=== PATIENT | female | born 1965 | race Caucasian/White ===

== ENCOUNTER 2016-12-14 11:12 | Emergency (ER) | payer OTHER ==
[~2016-12-14] VITALS: Ht 170.2 cm; Wt 83.9 kg
[~2016-12-14 11:12] MED LIST: DICL75TA5 PO; GABA300C PO; HYDR-548 PO; LEVO100T PO
[2016-12-14] MEDS ORDERED: PROMETHAZINE HCL 25 MG/1 ML VIAL ONE (11:43)
[2016-12-14] MEDS ORDERED: HYDROMORPHONE 2 MG/1 ML DISP.SYRIN ONE (11:43)
[2016-12-14] MEDS ORDERED: ONDANSETRON ODT 4 MG TAB.RAPDIS SL ONE (11:45)
[2016-12-14] MEDS ORDERED: HYDROMORPHONE 1 MG/1 ML DISP.SYRIN IM ONE (11:45)
[2016-12-14] MEDS ORDERED: PROMETHAZINE HCL 25 MG/1 ML VIAL IM ONE (11:45)
[2016-12-14] MEDS ORDERED: ONDANSETRON ODT 4 MG TAB.RAPDIS ONE (11:53)
[2016-12-14 12:13] VITALS: BP 136/77
--- NOTE | 2016-12-14 12:13 | NUR ---
pt was evaluated by dr navarro. pt was d/c to home. d/c instructions given to the pt.
== END 2016-12-14 12:14 | disposition home or self-care (01) ==
LOC: ER 11:13
DX: M54.40 Lumbago with sciatica, unspecified side (principal); F32.9 Major depressive disorder, single episode, unspecified; F41.9 Anxiety disorder, unspecified; F17.200 Nicotine dependence, unspecified, uncomplicated
CPT/HCPCS: 96372 ×2; 99284; A4663; J1170; J2550; Q0162

== ENCOUNTER 2017-01-15 16:22 | Emergency (ER) | payer OTHER ==
[~2017-01-15] VITALS: Ht 170.2 cm; Wt 86.2 kg
[2017-01-15] MEDS ORDERED: MORPHINE SULFATE 4 MG/1 ML DISP.SYRIN IM ONE ×2 (17:00→18:15)
[2017-01-15] MEDS ORDERED: MORPHINE SULFATE 2 MG/1 ML DISP.SYRIN ONE ×2 (17:11→18:12)
[2017-01-15] MEDS ORDERED: MORPHINE SULFATE 4 MG/1 ML DISP.SYRIN ONE ×2 (17:12→18:12)
[2017-01-15] MEDS ORDERED: ONDANSETRON ODT 4 MG TAB.RAPDIS SL ONE (17:30)
[2017-01-15] MEDS ORDERED: ONDANSETRON ODT 4 MG TAB.RAPDIS ONE (17:31)
--- NOTE | 2017-01-15 18:43 | NUR ---
Patient discharged to home in stable conditon. Written and verbal after care instructions given to patient and her significant other. Patient and family verbalized understanding of instructions. Patient says that she feels much better.
--- NOTE | 2017-01-15 18:44 | NUR ---
Patient walked out of ER with steady gait.
== END 2017-01-15 18:46 | disposition home or self-care (01) ==
LOC: ER 16:31
DX: M54.5 Low back pain (principal); F41.9 Anxiety disorder, unspecified; F32.9 Major depressive disorder, single episode, unspecified; M19.90 Unspecified osteoarthritis, unspecified site; F17.200 Nicotine dependence, unspecified, uncomplicated; Z90.710 Acquired absence of both cervix and uterus
CPT/HCPCS: A4663; J2270; Q0162

== ENCOUNTER 2017-02-12 10:20 | Emergency (ER) | payer OTHER ==
[~2017-02-12] VITALS: Ht 172.7 cm; Wt 72.6 kg
--- NOTE | 2017-02-12 10:25 | NUR ---
Patient is seen ambulating with steady gait to ER bed 2B, c/o chronic low back & right hip pains, denies recent trauma to affected site, NAD. Patient frequently comes to our ER for pain medicines.
[2017-02-12] MEDS ORDERED: PROMETHAZINE HCL 25 MG/1 ML VIAL IM ONE (10:45)
[2017-02-12] MEDS ORDERED: HYDROMORPHONE 1 MG/1 ML DISP.SYRIN IM ONE (10:45)
[2017-02-12] MEDS ORDERED: HYDROMORPHONE 2 MG/1 ML DISP.SYRIN ONE (10:50)
[2017-02-12] MEDS ORDERED: PROMETHAZINE HCL 25 MG/1 ML VIAL ONE (10:50)
[2017-02-12] MEDS ORDERED: HYDROMORPHONE 1 MG/1 ML DISP.SYRIN ONE (10:50)
--- NOTE | 2017-02-12 10:50 | NUR ---
Patient wants "nausea pill", notified.
[2017-02-12] MEDS ORDERED: ONDANSETRON ODT 4 MG TAB.RAPDIS SL ONE (11:00)
[2017-02-12] MEDS ORDERED: ONDANSETRON ODT 4 MG TAB.RAPDIS ONE (11:02)
--- NOTE | 2017-02-12 11:12 | NUR ---
Patient discharged to home in stable conditon with slow steady gait. Written and verbal after care instructions given to patient and male friend. Patient and adult male friend verbalized understanding of instructions.
== END 2017-02-12 11:13 | disposition home or self-care (01) ==
LOC: ER 10:20
DX: G89.29 Other chronic pain (principal); M54.30 Sciatica, unspecified side; M54.9 Dorsalgia, unspecified; F32.9 Major depressive disorder, single episode, unspecified; F41.9 Anxiety disorder, unspecified; F17.200 Nicotine dependence, unspecified, uncomplicated; M19.90 Unspecified osteoarthritis, unspecified site
CPT/HCPCS: 96372 ×2; 99284; A4663; J1170 ×2; J2550; Q0162

== ENCOUNTER 2017-05-01 12:46 | Emergency (ER) | payer OTHER ==
[~2017-05-01] VITALS: Ht 170.2 cm; Wt 88.5 kg
[2017-05-01] MEDS ORDERED: GABA600T2 PO (13:00)
[2017-05-01] MEDS ORDERED: CARI350T PO (13:00)
[2017-05-01] MEDS ORDERED: KETOROLAC TROMETHAMINE 30 MG INJ IM ONE (13:30)
[2017-05-01] MEDS ORDERED: KETOROLAC TROMETHAMINE 30 MG INJ ONE (13:37)
--- NOTE | 2017-05-01 13:44 | NUR ---
Pt evaluated by MD for chronic L hip pain, medicated as ordered, vss, nad at this time noted. Patient discharged home in stable conditon. Written and verbal after care instructions given. Patient verbalizes understanding of instructions.
[2017-05-01 13:48] VITALS: BP 148/99
== END 2017-05-01 13:49 | disposition home or self-care (01) ==
LOC: ER 12:46
DX: G89.29 Other chronic pain (principal); M25.552 Pain in left hip; F17.200 Nicotine dependence, unspecified, uncomplicated; M79.7 Fibromyalgia; G62.9 Polyneuropathy, unspecified; M19.90 Unspecified osteoarthritis, unspecified site
CPT/HCPCS: A4663; J1885

== ENCOUNTER 2017-05-05 15:21 | Emergency (ER) | payer OTHER ==
[~2017-05-05] VITALS: Ht 170.2 cm; Wt 88.5 kg
[~2017-05-05 15:21] MED LIST changes: +CARI350T PO; +GABA600T2 PO
[2017-05-05] MEDS ORDERED: KETOROLAC TROMETHAMINE 30 MG INJ IM ONE (16:00)
--- NOTE | 2017-05-05 16:01 | NUR ---
pt is in room #2b. dr Weiss evaluated the pt.
[2017-05-05] MEDS ORDERED: KETOROLAC TROMETHAMINE 30 MG INJ ONE (16:11)
[2017-05-05] MEDS ORDERED: ONDANSETRON ODT 4 MG TAB.RAPDIS SL ONE (17:15)
[2017-05-05] MEDS ORDERED: MORPHINE SULFATE 4 MG/1 ML DISP.SYRIN IM ONE (17:15)
[2017-05-05] MEDS ORDERED: MORPHINE SULFATE 2 MG/1 ML DISP.SYRIN ONE (17:18)
[2017-05-05] MEDS ORDERED: MORPHINE SULFATE 4 MG/1 ML DISP.SYRIN ONE (17:19)
[2017-05-05] MEDS ORDERED: ONDANSETRON ODT 4 MG TAB.RAPDIS ONE (17:19)
--- NOTE | 2017-05-05 17:25 | NUR ---
PT WAS D/C TO HOME. D/C INSTRUCTIONS GIVEN TO THE PT.
[2017-05-05 17:29] VITALS: BP 133/76
== END 2017-05-05 17:30 | disposition home or self-care (01) ==
LOC: ER 15:26
DX: G89.29 Other chronic pain (principal); M25.551 Pain in right hip; Z65.0 Conviction in civil and criminal proceedings without imprisonment; F17.200 Nicotine dependence, unspecified, uncomplicated; M79.7 Fibromyalgia; M19.90 Unspecified osteoarthritis, unspecified site
CPT/HCPCS: A4663; J2270; Q0162

== ENCOUNTER 2017-05-12 12:32 | Emergency (ER) | payer OTHER ==
[~2017-05-12] VITALS: Ht 170.2 cm; Wt 88.5 kg
[2017-05-12] MEDS ORDERED: KETOROLAC TROMETHAMINE 30 MG INJ IM ONE (13:30)
[2017-05-12] MEDS ORDERED: KETOROLAC TROMETHAMINE 30 MG INJ ONE (13:48)
== END 2017-05-12 14:30 | disposition home or self-care (01) ==
LOC: ER 12:34
DX: M25.552 Pain in left hip (principal); G89.29 Other chronic pain; F32.9 Major depressive disorder, single episode, unspecified; F41.9 Anxiety disorder, unspecified; M79.7 Fibromyalgia; M19.90 Unspecified osteoarthritis, unspecified site
CPT/HCPCS: 96372; 99283; A4663; J1885

== ENCOUNTER 2017-07-01 11:26 | Emergency (ER) | payer OTHER ==
[~2017-07-01] VITALS: Ht 167.6 cm; Wt 91.6 kg
--- NOTE | 2017-07-01 11:42 | NUR ---
DR RONDON AT THE BEDSIDE FOR EVAL AND EXAM.
[2017-07-01 12:15] VITALS: BP 116/88
--- NOTE | 2017-07-01 12:15 | NUR ---
Patient discharged to home in stable conditon. Written and verbal after care instructions given. Patient verbalizes understanding of instructions.
== END 2017-07-01 12:17 | disposition home or self-care (01) ==
LOC: ER 11:28
DX: G89.29 Other chronic pain (principal); M25.552 Pain in left hip; M19.90 Unspecified osteoarthritis, unspecified site
CPT/HCPCS: A4663; J1170; Q0162

== ENCOUNTER 2017-07-15 10:52 | Emergency (ER) | payer OTHER ==
[~2017-07-15] VITALS: Ht 167.6 cm; Wt 70.3 kg
[2017-07-15] MEDS ORDERED: ONDANSETRON 4 MG/2 ML VIAL IM ONE (11:15)
[2017-07-15] MEDS ORDERED: MORPHINE SULFATE 4 MG/1 ML DISP.SYRIN IM ONE (11:15)
[2017-07-15] MEDS ORDERED: MORPHINE SULFATE 2 MG/1 ML DISP.SYRIN ONE (11:20)
[2017-07-15] MEDS ORDERED: ONDANSETRON 4 MG/2 ML VIAL ONE (11:20)
[2017-07-15] MEDS ORDERED: MORPHINE SULFATE 4 MG/1 ML DISP.SYRIN ONE (11:20)
[2017-07-15] MEDS ORDERED: ONDANSETRON ODT 4 MG TAB.RAPDIS ONE (11:40)
--- NOTE | 2017-07-15 11:58 | NUR ---
Patient discharged to home in stable conditon. Written and verbal after care instructions given. Patient verbalizes understanding of instructions.pt says feels better, pain down to 4/10 which is tolerable level for pt. pt using own wheelchair.
[2017-07-15 11:59] VITALS: BP 131/89
[2017-07-15] MEDS ORDERED: ONDANSETRON ODT 4 MG TAB.RAPDIS SL ONE (12:00)
--- NOTE | 2017-07-15 12:00 | NUR ---
pt so. pt not driving
== END 2017-07-15 12:09 | disposition home or self-care (01) ==
LOC: ER 10:52
DX: G89.29 Other chronic pain (principal); M25.552 Pain in left hip; F17.200 Nicotine dependence, unspecified, uncomplicated; M19.90 Unspecified osteoarthritis, unspecified site; M79.7 Fibromyalgia
CPT/HCPCS: 96372 ×2; 99284; A4663; J2270 ×2; J2405; Q0162

== ENCOUNTER 2017-07-20 09:28 | Emergency (ER) | payer OTHER ==
[~2017-07-20] VITALS: Ht 170.2 cm; Wt 90.7 kg
--- NOTE | 2017-07-20 09:33 | NUR ---
At this moment, this patient is tearful & dramatic 2/2 chronic left hip pains and back pains, ALANIZ, denies any numbness, patient's respiration:easy. Boyfriend/male visitor is at bedside answering the questions for the patient most of the same time. The visitor is requesting for pain medicine prescription for the patient as well.
[2017-07-20] MEDS ORDERED: MORPHINE SULFATE 4 MG/1 ML DISP.SYRIN IM ONE (10:00)
[2017-07-20] MEDS ORDERED: PROMETHAZINE HCL 25 MG/1 ML VIAL IM ONE (10:00)
[2017-07-20] MEDS ORDERED: ONDANSETRON ODT 4 MG TAB.RAPDIS SL ONE (10:00)
--- NOTE | 2017-07-20 10:04 | NUR ---
Patient is AOx4, patient and visitor want to wait a little longer after the pain shot. Comfort and safety measures maintained.
--- NOTE | 2017-07-20 10:05 | NUR ---
Patient felt immediately better after the pain shot. Prescription for Percocet & Zofran given by MD. Patient discharged to home in stable conditon. Written and verbal after care instructions given to patient and boyfriend. Patient and family verbalized understanding of instructions.
[2017-07-20] MEDS ORDERED: MORPHINE SULFATE 4 MG/1 ML DISP.SYRIN ONE (10:08)
[2017-07-20] MEDS ORDERED: PROMETHAZINE HCL 25 MG/1 ML VIAL ONE (10:08)
[2017-07-20] MEDS ORDERED: ONDANSETRON ODT 4 MG TAB.RAPDIS ONE (10:15)
--- NOTE | 2017-07-20 10:24 | NUR ---
Patient is resting comfortably on gurney with eyes close, NAD.
--- NOTE | 2017-07-20 10:31 | NUR ---
"We're going. I feel so much better." per patient's verbalization. Patient's male visitor is driving the patient home. Patient left ER with their own wheelchair.
== END 2017-07-20 10:35 | disposition home or self-care (01) ==
LOC: ER 09:31
DX: G89.29 Other chronic pain (principal); M54.5 Low back pain; M25.551 Pain in right hip; M79.7 Fibromyalgia; F17.200 Nicotine dependence, unspecified, uncomplicated
CPT/HCPCS: 96372 ×2; 99284; A4663; J2270; J2550; Q0162

== ENCOUNTER 2017-10-04 06:38 | Emergency (ER) | payer OTHER ==
[~2017-10-04] VITALS: Ht 170.2 cm; Wt 86.2 kg
[2017-10-04] MEDS ORDERED: ONDANSETRON ODT 4 MG TAB.RAPDIS SL ONE (06:59)
[2017-10-04] MEDS ORDERED: MORPHINE SULFATE 4 MG/1 ML DISP.SYRIN IM ONE ×2 (07:00→07:45)
[2017-10-04] MEDS ORDERED: ONDANSETRON 4 MG/2 ML VIAL ONE (07:19)
[2017-10-04] MEDS ORDERED: MORPHINE SULFATE 4 MG/1 ML DISP.SYRIN ONE ×2 (07:19→07:53)
[2017-10-04] MEDS ORDERED: KETOROLAC TROMETHAMINE 60 MG INJ IM ONE ×2 (07:35→07:53)
--- NOTE | 2017-10-04 08:17 | NUR ---
Patient discharged to home in stable conditon. Written and verbal after care instructions given. Patient verbalizes understanding of instructions.pt walks in steady gait. pt with , pt not driving. pt says feels better and is ready to go home.
[2017-10-04 08:18] VITALS: BP 134/81
== END 2017-10-04 08:19 | disposition home or self-care (01) ==
LOC: ER 06:48
DX: G89.29 Other chronic pain (principal); M25.552 Pain in left hip; M19.90 Unspecified osteoarthritis, unspecified site; M79.7 Fibromyalgia; F17.200 Nicotine dependence, unspecified, uncomplicated
CPT/HCPCS: 96372 ×3; 99284; A4663; J1885; J2270 ×2; J2405

== ENCOUNTER 2017-11-01 19:05 | Emergency (ER) | payer OTHER ==
[~2017-11-01] VITALS: Ht 170.2 cm; Wt 90.7 kg
[2017-11-01] MEDS ORDERED: MORPHINE SULFATE 4 MG/1 ML DISP.SYRIN IM ONE (20:30)
[2017-11-01] MEDS ORDERED: ONDANSETRON 4 MG/2 ML VIAL IM ONE (20:30)
[2017-11-01] MEDS ORDERED: KETOROLAC TROMETHAMINE 30 MG INJ IM ONE (20:30)
--- NOTE | 2017-11-01 20:40 | NUR ---
Patient discharged to home in stable conditon. Written and verbal after care instructions given. Patient verbalizes understanding of instructions. pt instructed to not drive due to medication adminstered.
[2017-11-01 20:41] VITALS: BP 115/86
[2017-11-01] MEDS ORDERED: MORPHINE SULFATE 4 MG/1 ML DISP.SYRIN ONE (20:50)
[2017-11-01] MEDS ORDERED: ONDANSETRON 4 MG/2 ML VIAL ONE (20:51)
[2017-11-01] MEDS ORDERED: KETOROLAC TROMETHAMINE 30 MG INJ ONE (20:51)
== END 2017-11-01 20:42 | disposition home or self-care (01) ==
LOC: ER 19:06
DX: M25.552 Pain in left hip (principal); M19.90 Unspecified osteoarthritis, unspecified site; M79.7 Fibromyalgia; F17.200 Nicotine dependence, unspecified, uncomplicated
CPT/HCPCS: A4663; J1885; J2270; J2405

== ENCOUNTER 2017-12-03 15:32 | Emergency (ER) | payer OTHER ==
[~2017-12-03] VITALS: Ht 170.2 cm; Wt 90.7 kg
[2017-12-03] MEDS ORDERED: MORPHINE SULFATE 4 MG/1 ML DISP.SYRIN ONE (15:58)
[2017-12-03] MEDS ORDERED: KETOROLAC TROMETHAMINE 30 MG INJ ONE (15:58)
[2017-12-03] MEDS ORDERED: KETOROLAC TROMETHAMINE 30 MG INJ IM ONE (16:00)
[2017-12-03] MEDS ORDERED: MORPHINE SULFATE 4 MG/1 ML DISP.SYRIN IM ONE (16:00)
[2017-12-03] MEDS ORDERED: ONDANSETRON ODT 4 MG TAB.RAPDIS ONE (16:04)
--- NOTE | 2017-12-03 16:11 | NUR ---
Patient discharged to home in stable conditon. Written and verbal after care instructions given. Patient verbalizes understanding of instructions.
[2017-12-03 16:12] VITALS: BP 150/95
== END 2017-12-03 16:13 | disposition home or self-care (01) ==
LOC: ER 15:32
DX: G89.29 Other chronic pain (principal); M25.552 Pain in left hip; F17.210 Nicotine dependence, cigarettes, uncomplicated; Z90.710 Acquired absence of both cervix and uterus; Z79.891 Long term (current) use of opiate analgesic; Z79.899 Other long term (current) drug therapy
CPT/HCPCS: A4663; J1885; J2270; Q0162

== ENCOUNTER 2018-01-07 10:21 | Emergency (ER) | payer OTHER ==
[~2018-01-07] VITALS: Ht 170.2 cm; Wt 90.7 kg
--- NOTE | 2018-01-07 10:36 | NUR ---
Patient discharged to home in stable conditon. Written and verbal after care instructions given. Patient verbalizes understanding of instructions.pt with . pt upset for not getting narcotics.
== END 2018-01-07 10:39 | disposition home or self-care (01) ==
LOC: ER 10:21
DX: G89.29 Other chronic pain (principal); M54.5 Low back pain; F17.210 Nicotine dependence, cigarettes, uncomplicated; Z90.710 Acquired absence of both cervix and uterus; Z79.891 Long term (current) use of opiate analgesic; Z79.899 Other long term (current) drug therapy
CPT/HCPCS: A4663

== ENCOUNTER 2019-08-07 12:07 | Emergency (ER) | payer MEDICAID, OTHER ==
[~2019-08-07] VITALS: Ht 170.2 cm; Wt 90.7 kg
[~2019-08-07 12:07] MED LIST changes: +GABA600T12 PO; -GABA600T2 PO; +HYDR-4354 PO; -HYDR-548 PO
--- NOTE | 2019-08-07 12:26 | NUR ---
ERMD at bedside for MSE
[2019-08-07] MEDS ORDERED: KETOROLAC TROMETHAMINE 30 MG INJ ONE (12:44)
[2019-08-07] MEDS ORDERED: LIDOCAINE 5% PATCH TD ONE ×2 (12:45)
[2019-08-07] MEDS ORDERED: KETOROLAC TROMETHAMINE 30 MG INJ IM ONE (12:45)
--- NOTE | 2019-08-07 13:06 | NUR ---
Patient discharged to home in stable conditon. Written and verbal after care instructions given. Patient verbalizes understanding of instructions. pt ambulating with steady gait
[2019-08-07 13:10] VITALS: BP 137/72
== END 2019-08-07 13:04 | disposition home or self-care (01) ==
LOC: ER 12:08
DX: M54.12 Radiculopathy, cervical region (principal); F32.9 Major depressive disorder, single episode, unspecified; F41.9 Anxiety disorder, unspecified; F17.200 Nicotine dependence, unspecified, uncomplicated; G89.29 Other chronic pain; M54.9 Dorsalgia, unspecified; Z79.899 Other long term (current) drug therapy
CPT/HCPCS: 96372; 99283; J1885; A4663

== ENCOUNTER 2019-09-28 16:41 | Emergency (ER) | payer MEDICAID ==
[~2019-09-28] VITALS: Ht 170.2 cm; Wt 90.7 kg
[2019-09-28] MEDS ORDERED: KETOROLAC TROMETHAMINE 30 MG INJ IM ONE (17:45)
[2019-09-28] MEDS ORDERED: KETOROLAC TROMETHAMINE 30 MG INJ ONE (17:48)
--- NOTE | 2019-09-28 18:00 | NUR ---
Patient discharged to home in stable conditon. Written and verbal after care instructions given. Patient verbalizes understanding of instructions.walker provided per pt request.
== END 2019-09-28 18:03 | disposition home or self-care (01) ==
LOC: ER 16:42
DX: M25.562 Pain in left knee (principal); M25.552 Pain in left hip; M25.512 Pain in left shoulder; F32.9 Major depressive disorder, single episode, unspecified; F41.9 Anxiety disorder, unspecified; F17.200 Nicotine dependence, unspecified, uncomplicated; Z79.899 Other long term (current) drug therapy; W18.39XA Other fall on same level, initial encounter; Y93.89 Activity, other specified; Y92.89 Other specified places as the place of occurrence of the external cause; Y99.8 Other external cause status
CPT/HCPCS: 72170; 73030; 73564; 96372; 99283; J1885; A4663

== ENCOUNTER 2020-03-30 12:09 | Emergency (ER) | payer MEDICAID ==
[~2020-03-30] VITALS: Ht 170.2 cm; Wt 77.1 kg
--- NOTE | 2020-03-30 12:27 | NUR ---
Female tester [employer] packages accompanied female patient for (Dr Hackett).
--- NOTE | 2020-03-30 12:36 | NUR ---
Patient discharged to home in stable condition. Written and verbal after care instructions given. Patient verbalizes understanding of instructions. Stressed follow up or return to ER for worsening s/s.
[2020-03-30 12:37] VITALS: BP 132/95
== END 2020-03-30 12:37 | disposition home or self-care (01) ==
LOC: ER 12:09
DX: K64.4 Residual hemorrhoidal skin tags (principal); Z96.643 Presence of artificial hip joint, bilateral; G62.9 Polyneuropathy, unspecified; G89.29 Other chronic pain; M54.9 Dorsalgia, unspecified; M79.7 Fibromyalgia; Z79.899 Other long term (current) drug therapy
CPT/HCPCS: A4663

== ENCOUNTER 2021-06-02 21:23 | Emergency (ER) | payer MEDICAID ==
[~2021-06-02] VITALS: Ht 170.2 cm; Wt 86.2 kg
--- NOTE | 2021-06-02 22:27 | NUR ---
MD Strange in room to do MSE.
[2021-06-02] MEDS ORDERED: GENT5DRO4 EACHEYE (22:38)
[2021-06-02] MEDS ORDERED: AMOX-430 PO (22:38)
[2021-06-02] MEDS ORDERED: KETOROLAC TROMETHAMINE 60 MG INJ IM ONE ×2 (22:45→22:52)
--- NOTE | 2021-06-02 23:45 | NUR ---
Patient discharged to home in stable condition. Written and verbal after care instructions given. Patient verbalizes understanding of instructions. Stressed follow up or return to ER for worsening s/s. Patient out of ER with steady gait, no acute signs of distress, VSS, all belongings taken.
[2021-06-03 00:26] VITALS: BP 139/90
== END 2021-06-03 00:26 | disposition home or self-care (01) ==
LOC: ER 21:25
DX: L03.213 Periorbital cellulitis (principal); M06.9 Rheumatoid arthritis, unspecified; Z96.643 Presence of artificial hip joint, bilateral; G62.9 Polyneuropathy, unspecified; F41.9 Anxiety disorder, unspecified; Z79.899 Other long term (current) drug therapy; F17.200 Nicotine dependence, unspecified, uncomplicated
CPT/HCPCS: 96372; 99283; J1885; A4663

== ENCOUNTER 2021-08-01 20:29 | Emergency (ER) | payer MEDICAID ==
[~2021-08-01] VITALS: Ht 170.2 cm; Wt 86.6 kg
[~2021-08-01 20:29] MED LIST changes: +AMOX-430 PO; +GENT5DRO4 EACHEYE
--- NOTE | 2021-08-01 21:00 | NUR ---
Patient walked into ER with steady gait, A/Ox3 with no distress.
[2021-08-01] MEDS ORDERED: LORAZEPAM 2 MG/1 ML VIAL IM ONE (22:30)
[2021-08-01 22:49] LABS: HEMATOCRIT 45.1 % (31.2-41.9); MEAN CORPUSCULAR HEMOGLOBIN 28.7 uug (24.7-32.8); MEAN CORPUSCULAR VOLUME 84.4 fL (75.5-95.3); PLATELET COUNT (AUTO) 242 K/uL (179-408)
[2021-08-01 22:51] LABS: CARBON DIOXIDE 32 mmol/L (21-32); CHLORIDE 103 mmol/L (98-107); CREATININE 1.1 mg/dL (0.6-1.3); GLUCOSE 114 mg/dL (74-106); POTASSIUM 3.9 mmol/L (3.5-5.1); UREA NITROGEN, BLOOD 21 mg/dL (7-18)
[2021-08-01 22:58] LABS: ALANINE AMINOTRANSFERASE 25 U/L (14-59); ALKALINE PHOSPHATASE 81 U/L (50-136); ASPARTATE AMINOTRANSFERASE 18 U/L (15-37); BILIRUBIN,DIRECT 0.1 mg/dL (0.0-0.2); BILIRUBIN,TOTAL 0.3 mg/dL (0.2-1.0); TOTAL PROTEIN, SERUM 8.5 g/dL (6.4-8.2)
[2021-08-01 23:01] LABS: ACETAMINOPHEN < 2.0 ug/mL (10-30)
[2021-08-01] MEDS ORDERED: LORAZEPAM 1 MG TABLET ONE (23:05)
[2021-08-01 23:07] LABS: *BILIRUBIN,URIN NEGATIVE (NEGATIVE); *BLOOD, URINE NEGATIVE (NEGATIVE); *CLARITY,URINE CLEAR (CLEAR); *COLOR,URINE YELLOW (YELLOW); *KETONES,URINE 1+ (NEGATIVE); *UROBILINOGEN,URINE 0.2 E.U./dl (NORMAL); LEUKOCYTE ESTERASE ,URINE TRACE (NEGATIVE); NITRITE, URINE NEGATIVE (NEGATIVE); UGLUCOSE NEGATIVE (NEGATIVE)
[2021-08-01 23:27] LABS: BACTERIA,URINE FEW /HPF (NONE SEEN); MUCUS,URINE MODERATE /LPF (0-FEW); RBC,URINE 0-3 /HPF (0-3); SQUAMOUS EPITHELIAL CELL,UR FEW /HPF (NONE SEEN)
[2021-08-01 23:30] LABS: ETHANOL < 3 MG/DL (0-0)
[2021-08-01 23:33] LABS: *AMPHETAMINE, URINE NEGATIVE (NEGATIVE); *CANNABINOID, URINE NEGATIVE (NEGATIVE); *COCCAINE, URINE NEGATIVE (NEGATIVE); *OPIATE, URINE NEGATIVE (NEGATIVE); *PHENCYCLIDINE SCREEN,URINE NEGATIVE (NEGATIVE)
--- NOTE | 2021-08-02 00:10 | NUR ---
Medically Cleared by Dr Strange.
--- NOTE | 2021-08-02 00:12 | NUR ---
Amanda Conroy TEAM here to eval patient.
--- NOTE | 2021-08-02 00:18 | NUR ---
Patient does not meet 5150 criteria, patient requesting to be transfered to a voluntary GPS. Amanda spoke to Reina from [facility] intake who will review chart for pending acceptance.
[2021-08-02] MEDS ORDERED: LORAZEPAM 2 MG/1 ML VIAL IM ONE (01:30)
[2021-08-02] MEDS ORDERED: LORAZEPAM 2 MG/1 ML VIAL ONE (01:38)
--- NOTE | 2021-08-02 05:00 | NUR ---
Reina from [facility] intake called back with transfer in. Patient will be going to [facility], Accepting MD is Dr Slater. Call for report is ask to be transfer to unit 2.
--- NOTE | 2021-08-02 06:13 | NUR ---
Gave SBAR report to Gen nurse from [facility].
--- NOTE | 2021-08-02 07:24 | NUR ---
GAVE SBAR REPORT TO [id number].
== END 2021-08-02 07:29 ==
LOC: ER 20:30
DX: F41.8 Other specified anxiety disorders (principal); M06.9 Rheumatoid arthritis, unspecified; M79.7 Fibromyalgia; G62.9 Polyneuropathy, unspecified; Z20.822 Contact with and (suspected) exposure to COVID-19; Z96.643 Presence of artificial hip joint, bilateral; G89.29 Other chronic pain; M54.9 Dorsalgia, unspecified; Z79.899 Other long term (current) drug therapy
CPT/HCPCS: 36415; 70450; 71045; 80048; 80076; 80299; 80307; 80320; 81001; 85025; 87426; 96372 ×2; 99285; J2060; A4663; G0480

== ENCOUNTER 2022-03-15 17:55 | Emergency (ER) | payer MEDICAID ==
[~2022-03-15] VITALS: Ht 172.7 cm; Wt 81.6 kg
--- NOTE | 2022-03-15 19:23 | NUR ---
DR. RAMEY AT BEDSIDE, MSE IN PROGRESS.
[2022-03-15] MEDS ORDERED: KETOROLAC TROMETHAMINE 60 MG INJ IM ONE ×2 (19:30→19:46)
--- NOTE | 2022-03-15 19:38 | NUR ---
XRAY AT BEDSIDE.
[2022-03-15] MEDS ORDERED: MORPHINE SULFATE 4 MG/1 ML DISP.SYRIN ONE (20:25)
[2022-03-15] MEDS ORDERED: MORPHINE SULFATE 4 MG/1 ML DISP.SYRIN IM ONE (20:30)
[2022-03-15 20:39] LABS: HEMATOCRIT 40.1 % (31.2-41.9); MEAN CORPUSCULAR HEMOGLOBIN 29.7 uug (24.7-32.8); MEAN CORPUSCULAR VOLUME 87.1 fL (75.5-95.3); PLATELET COUNT (AUTO) 212 K/uL (179-408)
[2022-03-15 20:42] LABS: CARBON DIOXIDE 32 mmol/L (21-32); CHLORIDE 103 mmol/L (98-107); CREATININE 0.9 mg/dL (0.6-1.3); GLUCOSE 93 mg/dL (74-106); POTASSIUM 4.6 mmol/L (3.5-5.1); UREA NITROGEN, BLOOD 12 mg/dL (7-18)
[2022-03-15 20:55] LABS: ALANINE AMINOTRANSFERASE 30 U/L (14-59); ALKALINE PHOSPHATASE 68 U/L (50-136); ASPARTATE AMINOTRANSFERASE 17 U/L (15-37); BILIRUBIN,DIRECT 0.1 mg/dL (0.0-0.2); BILIRUBIN,TOTAL 0.4 mg/dL (0.2-1.0); TOTAL PROTEIN, SERUM 7.5 g/dL (6.4-8.2)
[2022-03-15 23:13] VITALS: BP 112/76
--- NOTE | 2022-03-15 23:13 | NUR ---
Patient discharged to home in stable condition. Written and verbal after care instructions given. Patient verbalizes understanding of instructions. Stressed follow up or return to ER for worsening s/s. No changes in LOC. Steady gait. Accompanied by friend.
== END 2022-03-15 23:14 | disposition home or self-care (01) ==
LOC: ER 17:55
DX: R07.89 Other chest pain (principal); F17.210 Nicotine dependence, cigarettes, uncomplicated; M06.9 Rheumatoid arthritis, unspecified; M79.7 Fibromyalgia; G89.29 Other chronic pain; M54.9 Dorsalgia, unspecified; Z79.890 Hormone replacement therapy; Z79.899 Other long term (current) drug therapy; E07.9 Disorder of thyroid, unspecified
CPT/HCPCS: 36415; 71045; 71101; 80048; 80076; 83880; 84484 ×2; 85025; 85379; 93005; 96372 ×2; 99285; J1885; J2270; A4663

== ENCOUNTER 2022-06-10 01:04 | Emergency (ER) | payer MEDICAID ==
[~2022-06-10] VITALS: Ht 170.2 cm; Wt 86.2 kg
--- NOTE | 2022-06-10 01:30 | NUR ---
Pt A/O x4. Ambulates with steady gait. NAD noted.
--- NOTE | 2022-06-10 01:40 | NUR ---
Dr. Santiago at bedside. MSE in progress.
[2022-06-10 01:55] LABS: *BILIRUBIN,URIN NEGATIVE (NEGATIVE); *BLOOD, URINE NEGATIVE (NEGATIVE); *CLARITY,URINE CLEAR (CLEAR); *COLOR,URINE YELLOW (YELLOW); *KETONES,URINE TRACE (NEGATIVE); *UROBILINOGEN,URINE 0.2 E.U./dl (NORMAL); LEUKOCYTE ESTERASE ,URINE NEGATIVE (NEGATIVE); NITRITE, URINE NEGATIVE (NEGATIVE); UGLUCOSE NEGATIVE (NEGATIVE)
[2022-06-10 02:13] LABS: BACTERIA,URINE NONE SEEN /HPF (NONE SEEN); RBC,URINE 0-3 /HPF (0-3); SQUAMOUS EPITHELIAL CELL,UR FEW /HPF (NONE SEEN); WBC,URINE 0-3 /HPF (0-3)
[2022-06-10] MEDS ORDERED: OXYC-128 PO (02:14)
[2022-06-10] MEDS ORDERED: METR70GE2 VG (02:14)
[2022-06-10] MEDS ORDERED: METR500T PO (02:14)
[2022-06-10] MEDS ORDERED: MORPHINE SULFATE 2 MG/1 ML DISP.SYRIN ONE ×2 (02:15→03:13)
[2022-06-10] MEDS ORDERED: MORPHINE SULFATE 4 MG/1 ML DISP.SYRIN IM ONE ×2 (02:15→03:00)
[2022-06-10] MEDS ORDERED: MORPHINE SULFATE 4 MG/1 ML DISP.SYRIN ONE (03:13)
--- NOTE | 2022-06-10 03:25 | NUR ---
patient requesting for more pain medication ZAHEER ESTRADA was made aware with order for morphine 6 mg im x1 given via the right buttocks where the patient wants to be given .
--- NOTE | 2022-06-10 03:27 | NUR ---
Patient discharged to home in stable condition. WENT HOME WITH ALL BELONINGS . Written and verbal after care instructions given. AMBULATORY STEADY OF GAIT .WENT HOME WITH BOYFRIEND . Patient verbalizes understanding of instructions. Stressed follow up or return to ER for worsening s/s.
[2022-06-10 03:35] VITALS: BP 115/68
== END 2022-06-10 03:36 | disposition home or self-care (01) ==
LOC: ER 01:53
DX: S16.1XXA Strain of muscle, fascia and tendon at neck level, initial encounter (principal); X58.XXXA Exposure to other specified factors, initial encounter; Y92.032 Bedroom in apartment as the place of occurrence of the external cause; N76.0 Acute vaginitis; M06.9 Rheumatoid arthritis, unspecified; M79.7 Fibromyalgia; G89.29 Other chronic pain; M54.9 Dorsalgia, unspecified; G62.9 Polyneuropathy, unspecified; M19.90 Unspecified osteoarthritis, unspecified site; Z96.643 Presence of artificial hip joint, bilateral; Z90.710 Acquired absence of both cervix and uterus
CPT/HCPCS: 99284; 81001; 96372 ×2; 87070; J2270 ×3; A4663

== ENCOUNTER 2023-05-16 20:32 | Emergency (ER) | payer MEDICAID ==
[~2023-05-16] VITALS: Ht 170.2 cm; Wt 85.4 kg
[~2023-05-16 20:32] MED LIST changes: +METR500T PO; +METR70GE2 VG; +OXYC-128 PO
[2023-05-16] MEDS ORDERED: CLIN300C12 PO (21:09)
[2023-05-16] MEDS ORDERED: CLINDAMYCIN HCL 150 MG CAPSULE PO ONE (21:15)
[2023-05-16] MEDS ORDERED: KETOROLAC TROMETHAMINE 30 MG INJ IM ONE (21:15)
[2023-05-16] MEDS ORDERED: CLINDAMYCIN HCL 300 MG CAPSULE ONE (21:21)
[2023-05-16] MEDS ORDERED: KETOROLAC TROMETHAMINE 30 MG INJ ONE (21:22)
[2023-05-16 21:43] VITALS: BP 140/75; TEMP 98; O2SAT 100
== END 2023-05-16 21:44 | disposition home or self-care (01) ==
LOC: ER 20:41
DX: L03.115 Cellulitis of right lower limb (principal); L97.529 Non-pressure chronic ulcer of other part of left foot with unspecified severity; G89.29 Other chronic pain; M54.9 Dorsalgia, unspecified; Z90.710 Acquired absence of both cervix and uterus; Z79.2 Long term (current) use of antibiotics; Z79.899 Other long term (current) drug therapy
CPT/HCPCS: 99283; 96372; J1885; A4663

== ENCOUNTER 2024-05-10 22:29 | Emergency (ER) | payer MEDICAID ==
[~2024-05-10] VITALS: Ht 170.2 cm; Wt 92.2 kg
[~2024-05-10 22:29] MED LIST changes: +CLIN300C12 PO
[2024-05-10] MEDS ORDERED: LIDOCAINE HCL 2% 20 ML VIAL ONE (23:45)
[2024-05-10] MEDS ORDERED: KETOROLAC TROMETHAMINE 30 MG INJ ONE (23:45)
[2024-05-10] MEDS: LIDOCAINE HCL 2% 20 ML VIAL IJ ONE (23:50)
[2024-05-10] MEDS: KETOROLAC TROMETHAMINE 30 MG INJ IM ONE (23:50)
[2024-05-11] MEDS ORDERED: HYDROCODONE/APAP 5-325MG TABLET ONE (00:03)
[2024-05-11] MEDS ORDERED: AMOX-430 PO (00:41)
[2024-05-11] MEDS: NEOMY/BACITRA/POLYMYXIN B OINT UD PACKET TP ONE (00:47)
[2024-05-11 00:51] VITALS: BP 125/74; TEMP 98; O2SAT 97
== END 2024-05-11 00:52 | disposition home or self-care (01) ==
LOC: ER 22:32
DX: L03.012 Cellulitis of left finger (principal); F17.200 Nicotine dependence, unspecified, uncomplicated; Z98.890 Other specified postprocedural states; Z79.891 Long term (current) use of opiate analgesic; Z79.899 Other long term (current) drug therapy; Z60.2 Problems related to living alone
CPT/HCPCS: A4606; A4663; J1885; J3490

== ENCOUNTER 2024-10-31 23:19 | Emergency (ER) | payer MEDICAID ==
[~2024-10-31] VITALS: Ht 170.2 cm; Wt 93.4 kg
[2024-11-01] MEDS ORDERED: diphenhydrAMINE 50 MG/1 ML VIAL ONE ×2 (02:11→03:42)
[2024-11-01] MEDS ORDERED: HYDROMORPHONE 1 MG/1 ML DISP.SYRIN ONE ×2 (02:11→03:42)
[2024-11-01] MEDS: diphenhydrAMINE 50 MG/1 ML VIAL IM ONE ×2 (02:31→03:48)
[2024-11-01] MEDS: HYDROMORPHONE 1 MG/1 ML DISP.SYRIN IM ONE ×2 (02:35→03:49)
[2024-11-01 03:51] VITALS: BP 153/93; O2SAT 96
== END 2024-11-01 03:51 | disposition home or self-care (01) ==
LOC: ER 23:19
DX: G89.29 Other chronic pain (principal); M54.2 Cervicalgia; M54.50 Low back pain, unspecified; F17.290 Nicotine dependence, other tobacco product, uncomplicated; M06.9 Rheumatoid arthritis, unspecified; M79.7 Fibromyalgia; Z96.643 Presence of artificial hip joint, bilateral; Z79.899 Other long term (current) drug therapy; Z60.2 Problems related to living alone; Z88.7 Allergy status to serum and vaccine
CPT/HCPCS: 99285; 72125; 96372 ×2; J1171 ×2; J1200 ×2; A4606; A4663

== ENCOUNTER 2025-02-16 22:35 | Emergency (ER) | payer MEDICAID ==
[~2025-02-16] VITALS: Ht 172.7 cm; Wt 96.6 kg
[2025-02-16] MEDS ORDERED: HYDR-3972 PO (23:41)
[2025-02-16] MEDS ORDERED: AMOX-430 PO (23:41)
[2025-02-16] MEDS ORDERED: AMOXICILLIN-CLAVUL 875-125MG TABLET ONE (23:54)
[2025-02-16] MEDS ORDERED: KETOROLAC TROMETHAMINE 30 MG INJ ONE (23:54)
[2025-02-16] MEDS: KETOROLAC TROMETHAMINE 30 MG INJ IM ONE (23:55)
[2025-02-16] MEDS: AMOXICILLIN-CLAVUL 875-125MG TABLET PO ONE (23:55)
[2025-02-17 01:10] VITALS: BP 130/91; TEMP 97.8; O2SAT 98
== END 2025-02-17 01:11 | disposition home or self-care (01) ==
LOC: ER 22:35
DX: L60.0 Ingrowing nail (principal); F17.290 Nicotine dependence, other tobacco product, uncomplicated; G89.29 Other chronic pain; M06.9 Rheumatoid arthritis, unspecified; M79.7 Fibromyalgia; Z79.899 Other long term (current) drug therapy; Z88.7 Allergy status to serum and vaccine; Z86.69 Personal history of other diseases of the nervous system and sense organs; Z60.2 Problems related to living alone
CPT/HCPCS: 99283; 96372; J1885; A4606; A4663